=== PATIENT | male | born 1975 | race Hispanic/Latino ===

== ENCOUNTER 2019-04-26 16:09 | Emergency (ER) | payer BC, SELFPAY ==
[~2019-04-26 16:09] MED LIST: ISOVUE-370 76%-LOCM 1 ML ONE
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
== END 2019-04-26 19:08 | disposition home or self-care (01) ==
LOC: ERS 16:09
DX: S10.93XA Contusion of unspecified part of neck, initial encounter (principal); F17.210 Nicotine dependence, cigarettes, uncomplicated; W03.XXXA Other fall on same level due to collision with another person, initial encounter
CPT/HCPCS: 70498; 99406; Q9966

== ENCOUNTER 2020-10-24 07:41 | Emergency (ER) | payer OTHER, SELFPAY ==
[2020-10-24 13:42] LABS: SARS-CoV-2 PCR by NAA DETECTED (NotDetected)
== END 2020-10-24 08:05 | disposition home or self-care (01) ==
LOC: ERS 07:41
DX: M79.10 Myalgia, unspecified site (principal); Z20.822 Contact with and (suspected) exposure to COVID-19
CPT/HCPCS: 87635; 99283; U0003; U0005

== ENCOUNTER 2023-01-02 15:53 | Emergency (ER) | payer OTHER, SELFPAY ==
[2023-01-02] MEDS ORDERED: Ketorolac Tromethamine 30 MG/ML VIAL ONE (16:22)
== END 2023-01-02 16:40 | disposition home or self-care (01) ==
LOC: ERS 15:53
DX: S39.012A Strain of muscle, fascia and tendon of lower back, initial encounter (principal); F17.210 Nicotine dependence, cigarettes, uncomplicated; W18.30XA Fall on same level, unspecified, initial encounter
CPT/HCPCS: 96372; 99283; J1885

== ENCOUNTER 2023-01-23 17:23 | Emergency (ER) | payer SELFPAY ==
[2023-01-23] MEDS ORDERED: Ketorolac Tromethamine 30 MG/ML VIAL ONE (17:44)
[2023-01-23] MEDS ORDERED: Dexamethasone 10 MG/ML VIAL ONE (17:44)
[2023-01-23] MEDS ORDERED: LORazepam 2 MG/ML SYR.(CARPUJECT) ONE (17:44)
[2023-01-23] MEDS ORDERED: HYDROcodone/Acetaminophen 10/325 mg Tablet ONE (17:44)
== END 2023-01-23 18:11 | disposition home or self-care (01) ==
LOC: ERS 17:23
DX: M54.40 Lumbago with sciatica, unspecified side (principal); F17.210 Nicotine dependence, cigarettes, uncomplicated
CPT/HCPCS: 72100; 96372; 99283; J1100; J1885; J2060

== ENCOUNTER 2023-08-31 15:59 | Emergency (ER) | payer SELFPAY | END 2023-08-31 16:55 | disposition home or self-care (01) | LOC: ERS 15:59 | DX: J06.9 Acute upper respiratory infection, unspecified (principal); F17.210 Nicotine dependence, cigarettes, uncomplicated; Z55.6 Problems related to health literacy | CPT/HCPCS: 99283 ==